=== PATIENT | male | born 1975 | race Caucasian/White ===

== ENCOUNTER 2017-07-27 07:11 | Emergency (ER) | payer OTHER ==
[~2017-07-27] VITALS: Ht 167.6 cm; Wt 97.6 kg
[2017-07-27 07:14] VITALS: Ht 167.6 cm; Wt 97.6 kg
[2017-07-27] MEDS ORDERED: KETOROLAC 60 MG INJ IM STA (07:43)
[2017-07-27] MEDS ORDERED: DIPHTH/TET/ACEL PERTUSS (ADULT) 0.5 ML VIAL IM* ONE (08:00)
--- NOTE | 2017-07-27 08:58 | RADRPT ---
PROCEDURE: FOOT RADIOGRAPH CLINICAL INDICATION: Stepped on nail. TECHNIQUE: AP, lateral and oblique views of the left foot were completed. COMPARISON: None. FINDINGS: The bones are intact. The joint spaces are preserved.. There is no osteoblastic or osteolytic lesion . The soft tissues are unremarkable. No radiopaque foreign body is seen. IMPRESSION: Unremarkable left foot radiograph. RPTAT: HMZ .Chico Hillman MD, MD Date Time Electronically viewed and signed by .Chico Hillman MD, on 07/27/2017 08:58 .Z/
[2017-07-27] MEDS ORDERED: CIPR500T4 PO (09:35)
[2017-07-27] MEDS ORDERED: IBUP-1542 PO (09:35)
[2017-07-27 10:01] VITALS: BP 128/75; PULSE 70; TEMP 98.3
--- NOTE | 2017-07-27 12:19 | ERD ---
ER Documentation Chief Complaint Date/Time DATE: 07/27/17 TIME: 12:14 Chief Complaint Complains of a puncture wound on left foot since yesterday HPI 42-year-old male with no significant past medical history presents to the ED complaining of a puncture wound to his left foot. Reports that he was wearing tennis shoes yesterday and accidentally stepped on a nail. States that he is unsure when he was updated with his tetanus vaccine, it may have been 4-5 years ago. Describes pain to the punctate site. Denies any bleeding. States that he removed the nail and it did not go that deep into the foot. Reports that it is slightly painful to walk with his left foot. Denies any fever, chills, loss of sensation, loss of range of motion, weakness, numbness or tingling, vomiting. ROS All systems reviewed and are negative except as per history of present illness. Medications Home Meds Active Scripts Ibuprofen* (Motrin*) 600 Mg Tab, 600 MG PO Q6, #30 TAB Prov:VALENTINE STEARNS PA-C 07/27/17 Ciprofloxacin Hcl* (Ciprofloxacin Hcl*) 500 Mg Tablet, 500 MG PO BID for 7 Days , TAB Prov:VALENTINE STEARNS PA-C 07/27/17 Allergies Allergies: Coded Allergies: No Known Allergy (Unverified , 07/27/17) PMhx/Soc Medical and Surgical Hx: pt denies Medical Hx, pt denies Surgical Hx Hx Alcohol Use: Yes (socially) Hx Substance Use: No Hx Tobacco Use: Yes Smoking Status: Current some day smoker Physical Exam Vitals Vital Signs Date Time Temp Pulse Resp B/P Pulse Ox O2 Delivery O2 Flow Rate FiO2 07/27/17 10:01 98.3 70 128/75 07/27/17 07:14 97.6 81 20 129/89 98 Physical Exam Const: [id number], well-nourished. In no acute distress. Head: Atraumatic, normocephalic Eyes: Normal Conjunctiva without injection ENT: Normal external ear, nose and mouth. Neck: Full range of motion. No meningismus. Resp: Clear to auscultation bilaterally. No wheezing, rhonchi, rales, or crackles. No accessory muscle use. No retractions. Cardio: Regular rate and rhythm, no murmurs Skin: No petechiae or rashes Back: No midline tenderness. No CVA tenderness. Ext: No cyanosis, or edema. Cap refill less than 2 seconds. Distal pulses intact bilaterally. Closed nonerythematous punctate wound noted on plantar surface of left foot below the 2nd and 3rd digit near MTP. No edema. No deformities. Slight warmth to touch. Range of motion with bilateral knees, ankles, IP and MTP joints with flexion, extension. Neur: Awake and alert. Slight limping gait due to pain. Normal coordination. Muscle strength 5/5. Sensation intact bilaterally. Psych: Normal Mood and Affect Results 24 hrs Current Medications Medications (Trade) Dose Ordered Sig/Nicholas Route PRN Reason Start Time Stop Time Status Last Admin Dose Admin Diphtheria/ Tetanus/Acell Pertussis (Adacel) 0.5 ml ONCE ONCE IM* 07/27/17 08:00 07/27/17 08:01 DC 07/27/17 08:01 Ketorolac Tromethamine (Toradol) 60 mg ONCE STAT IM 07/27/17 07:43 07/27/17 07:46 DC 07/27/17 08:00 Procedures/MDM 42-year-old male patient with no significant past medical history presents to the ED complaining of a puncture wound to his left foot that started yesterday. Patient is afebrile and nontoxic-appearing. A left foot x-ray was ordered to further evaluate patient. Patient was updated with his tetanus vaccine here in the ED. Patient was treated here in the ED with Toradol with improvement of his pain. Patient given crutches to help with ambulation. Patient is neurovascularly intact. Patient's extremity symptoms have stabilized while they have been evaluated in the department and are appropriate for outpatient follow up. No evidence of fractures, dislocations, compartment syndrome, neurologic injury, necrotizing fascitis, gangrene, cellulitis, vascular injury, open joint , open fracture, tendon laceration, septic arthritis, osteomyelitis, DVT, foreign body, or other emergent conditions. Discharge medications: Ibuprofen, Ciprofloxacin (to cover for possible pseudomonas infection due to patient wearing his tennis shoes and stepping on a nail) Follow up with primary care physician in 1-2 days. Instructed patient to return to the ED sooner for any worsening symptoms. Patient's questions were answered. Patient understood and agreed with discharge plan. Patient discharged stable. Departure Diagnosis: Primary Impression: Puncture wound Condition: Stable Patient Instructions: First Aid: Punctures, Puncture Wound, Foot Referrals: [facility] YOU HAVE RECEIVED A MEDICAL SCREENING EXAM AND THE RESULTS INDICATE THAT YOU DO NOT HAVE A CONDITION THAT REQUIRES URGENT TREATMENT IN THE EMERGENCY DEPARTMENT. FURTHER EVALUATION AND TREATMENT OF YOUR CONDITION CAN WAIT UNTIL YOU ARE SEEN IN YOUR DOCTORS OFFICE WITHIN THE NEXT 1-2 DAYS. IT IS YOUR RESPONSIBILITY TO MAKE AN APPOINTMENT FOR FOLOW-UP CARE. IF YOU HAVE A PRIMARY DOCTOR --you should call your primary doctor and schedule an appointment IF YOU DO NOT HAVE A PRIMARY DOCTOR YOU CAN CALL OUR PHYSICIAN REFERRAL HOTLINE AT IF YOU CAN NOT AFFORD TO SEE A PHYSICIAN YOU CAN CHOSE FROM THE FOLLOWING [facility] [address] [facility] [address] [facility] [facility] [address] [facility] [address] [facility] [address] [facility]. [facility] [address] [facility] YOU HAVE RECEIVED A MEDICAL SCREENING EXAM AND THE RESULTS INDICATE THAT YOU DO NOT HAVE A CONDITION THAT REQUIRES URGENT TREATMENT IN THE EMERGENCY DEPARTMENT. FURTHER EVALUATION AND TREATMENT OF YOUR CONDITION CAN WAIT UNTIL YOU ARE SEEN IN YOUR DOCTORS OFFICE WITHIN THE NEXT 1-2 DAYS. IT IS YOUR RESPONSIBILITY TO MAKE AN APPOINTMENT FOR FOLOW-UP CARE. IF YOU HAVE A PRIMARY DOCTOR --you should call your primary doctor and schedule and appointment IF YOU DO NOT HAVE A PRIMARY DOCTOR YOU CAN CALL OUR PHYSICIAN REFERRAL HOTLINE AT . IF YOU CAN NOT AFFORD TO SEE A PHYSICIAN YOU CAN CHOSE FROM THE FOLLOWING [facility] INSTITUTIONS: [facility] [address] [place] [address] [facility] [address] [place] [address] [facility] + [facility] [address] [place] [address] [facility]ENT [facility]/SPECIALTIES Additional Instructions: WOUND CHECK:CONSULTE A PENDLETON MDICO EN 2 freeman para bhumi PENDLETON HERIDA. No juegue deportes o levante pesas pesadas mientras est tomando ciprofloxacina Llame al doctor MAANA y anjelica emily LOIS PARA DENTRO DE 2-3 MAYER.Dgale a la secretaria que nosotros le instruimos hacer esta lois.Avise o llame si pendleton condicin se empeora antes de la lois. Regresa aqui si peor o no mejor. VALENTINE STEARNS PA-C Jul 27, 2017 12:19
== END 2017-07-27 10:03 | disposition home or self-care (01) ==
LOC: FTE 07:11
DX: S91.342A Puncture wound with foreign body, left foot, initial encounter (principal); F17.210 Nicotine dependence, cigarettes, uncomplicated; W45.0XXA Nail entering through skin, initial encounter; Y92.9 Unspecified place or not applicable
CPT/HCPCS: 73630; 90471; 90715; 96372; 99284; J1885